=== PATIENT | female | born 1970 | race Caucasian/White ===

== ENCOUNTER 2019-02-05 07:20 | Emergency (ER) | payer OTHER ==
[2019-02-05] MEDS ORDERED: Morphine 4 MG/ML VIAL ONE ×2 (08:16→09:24)
[2019-02-05] MEDS ORDERED: Ondansetron PF 4 MG/2 ML Vial ONE ×2 (08:17→09:29)
[2019-02-05 08:32] LABS: #Basophils 0.2 thou/uL (0.0-0.2); #Lymphocytes 1.4 thou/uL (1.20-3.40); #Monocytes 0.9 thou/uL (0.11-0.59); #Neutrophils 14.6 thou/uL (1.40-6.50); %Basophils 1.3 % (0.0-1.0); %Lymphocytes 8.2 % (21.0-51.0); %Neutrophils 85.4 % (42.0-75.0); BHCG - Serum Negative (NEGATIVE); Hemoglobin 14.5 g/dL (12.0-16.0); Mean Corpuscular Hemoglobin 32.3 pg (27.0-31.0); Mean Corpuscular Volume 92.2 fL (78.0-98.0); Mean Platelet Volume 5.2 fL (7.4-10.4); Platelet Count 257 thou/uL (130-400); Pregs Control Background? CLEAR/WHITE (CLR/WHITE); Pregs Control Bar Appear? YES (CONTROL BAR); RBC Distribution Width 10.6 % (11.5-14.5); Red Blood Cell (RBC) Count 4.49 mill/uL (4.20-5.40); White Blood Cell (WBC) Count 17.1 thou/uL (4.8-10.8)
[2019-02-05 08:40] LABS: ALT (SGPT) 51 U/L (8-55); AST (SGOT) 113 U/L (5-34); Albumin 4.4 g/dL (3.5-5.0); Alcohol 47 mg/dL (Less than 10); Alkaline Phosphatase 68 U/L (40-150); Anion Gap 16 mmol/L (10-20); BUN (Urea Nitrogen) 7 mg/dL (7.0-18.7); Bilirubin, Total 0.3 mg/dL (0.2-1.2); Calc. Creatinine Clearance 0 mL/min (70-130); Calcium 8.5 mg/dL (7.8-10.44); Carbon Dioxide 19 mmol/L (22-29); Chloride 105 mmol/L (98-107); Estimated GFR-MDRD Greater than 90; Globulin 2.6 g/dL (2.4-3.5); Glucose 105 mg/dL (70-105); Lipase 11 U/L (8-78); Potassium 3.9 mmol/L (3.5-5.1); Sodium 136 mmol/L (136-145)
--- NOTE | 2019-02-05 08:47 | RAD ---
EXAM: XR Shoulder Lt 3 View STANDARD PROVIDED CLINICAL HISTORY: Pain FINDINGS: There is no evidence for fracture or other acute osseous abnormality. Alignment appears anatomic. Acr omioclavicular joint osteoarthrosis. Visualized left lung field appears clear. IMPRESSION: No evidence for an acute osseous abnormality. If there is persistent clinical concern, conservative m anagement and follow-up imaging advised.
--- NOTE | 2019-02-05 08:53 | RAD ---
EXAM: XR Elbow Lt 4 View STANDARD PROVIDED CLINICAL HISTORY: Pain FINDINGS: There is no evidence for fracture or other acute osseous abnormality. Alignment appears anatomic. Debi nt spaces appear preserved. Evaluation is limited due to suboptimal positioning of the lateral view. IMPRESSION: No evidence for an acute osseous abnormality. If there is persistent clinical concern, conservative m anagement and follow-up imaging advised.
--- NOTE | 2019-02-05 09:00 | RAD ---
EXAM: XR Forearm Lt 2 View STANDARD PROVIDED CLINICAL HISTORY: Pain FINDINGS: There is no evidence for fracture or other acute osseous abnormality. Alignment appears anatomic. Debi nt spaces appear preserved. Evaluation is limited due to incomplete inclusion of the distal radius and ulna on the lateral view. IMPRESSION: No evidence for an acute osseous abnormality. If there is persistent clinical concern, conservative m anagement and follow-up imaging advised.
[2019-02-05] MEDS ORDERED: Iopamidol 370 76% 100 ML VIAL ONE (09:13)
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
[2019-02-05] MEDS ORDERED: Adacel (T-DAP) 0.5 ML SYRINGE ONE (09:49)
== END 2019-02-05 10:03 | disposition short-term general hospital (02) ==
LOC: MADERS 07:20
DX: S12.100A Unspecified displaced fracture of second cervical vertebra, initial encounter for closed fracture (principal); T14.8XXA Other injury of unspecified body region, initial encounter; F17.210 Nicotine dependence, cigarettes, uncomplicated; V49.9XXA Car occupant (driver) (passenger) injured in unspecified traffic accident, initial encounter
CPT/HCPCS: 36415; 70450; 71260; 72125; 74177; 80053; 80307; 83690; 84703; 85025; 85610; 90471; 90715; 93005; 96374; 96375; 96376; J2270; J2405; Q9967